=== PATIENT | female | born 1950 | race Two or more races ===

== ENCOUNTER → 2016-07-17 | Outpatient (CLI) | payer OTHER ==
[2016-07-17 12:31] LABS: Basophils # (auto) 0 uL; Basophils % (auto) 0.5 % (0.0-2.0); Eosinophils # (auto) 0 uL; Eosinophils % (auto) 1.3 % (0.0-7.0); Hematocrit 35.5 % (36.0-46.0); Hemoglobin 11.4 g/dL (12.2-16.2); Lymphocytes # (auto) 1.3 uL; Lymphocytes % (auto) 35.6 % (10.0-50.0); Mean Corpuscular Hemoglobin 28.4 pg (28.0-32.0); Mean Corpuscular Hgb Conc. 32.2 g/dL (32.0-36.0); Mean Platelet Volume 10.1 fL (7.4-10.4); Monocytes # (auto) 0.2 uL; Monocytes % (auto) 6.2 % (0.0-12.0); Neutrophils % (auto) 56.4 % (37.0-80.0); Platelet Count (auto) 207 10^3/uL (140-450); Red Cell Distribution Width 16.5 % (11.6-16.0); White Blood Cell 3.5 10^3/uL (4.4-10.8)
[2016-07-17 14:34] LABS: Albumin 3.1 g/dL (3.4-5.0); BUN/Creatinine Ratio 15.1; Bilirubin, Total 0.3 mg/dL (0.2-1.0); Potassium 3.7 mmol/L (3.5-5.1); Total Protein 10.3 g/dL (6.4-8.2)
== END | disposition home or self-care (01) ==
LOC: LAB 10:59
PROVIDERS: ATTEND Internal Medicine
DX: C90.00 Multiple myeloma not having achieved remission (principal)
CPT/HCPCS: 36415; 80053; 82232; 82784; 83615; 83883; 85025; 85652; 86334

== ENCOUNTER → 2016-07-21 | Outpatient (CLI) | payer OTHER | END | disposition home or self-care (01) | LOC: LAB 13:47 | PROVIDERS: ATTEND Internal Medicine | DX: C90.00 Multiple myeloma not having achieved remission (principal) | CPT/HCPCS: 84156 ==

== ENCOUNTER → 2016-08-18 | Outpatient (CLI) | payer OTHER ==
[2016-08-18 09:28] LABS: Basophils # (auto) 0 uL; Basophils % (auto) 0.5 % (0.0-2.0); Eosinophils # (auto) 0.1 uL; Eosinophils % (auto) 1.6 % (0.0-7.0); Hematocrit 32.4 % (36.0-46.0); Hemoglobin 10.7 g/dL (12.2-16.2); Lymphocytes # (auto) 1.3 uL; Lymphocytes % (auto) 39.8 % (10.0-50.0); Mean Corpuscular Volume 88.1 fL (80.0-100.0); Mean Platelet Volume 9.7 fL (7.4-10.4); Monocytes # (auto) 0.4 uL; Monocytes % (auto) 11.3 % (0.0-12.0); Neutrophils # (auto) 1.6 uL; Neutrophils % (auto) 46.8 % (37.0-80.0); Platelet Count (auto) 165 10^3/uL (140-450); Red Cell Distribution Width 18.6 % (11.6-16.0); SUSPECT VIEW TRANSMISSION; White Blood Cell 3.4 10^3/uL (4.4-10.8)
[2016-08-18 09:51] LABS: BUN/Creatinine Ratio 21.8; Calcium 9.4 mg/dL (8.5-10.1); Potassium 3.7 mmol/L (3.5-5.1)
== END | disposition home or self-care (01) ==
LOC: LAB 08:37
PROVIDERS: ATTEND Internal Medicine
DX: C90.01 Multiple myeloma in remission (principal)
CPT/HCPCS: 36415; 80048; 82232; 82784; 83615; 83883; 85025; 86334; 86335

== ENCOUNTER → 2016-09-29 | Outpatient (CLI) | payer OTHER ==
[2016-09-29 09:21] LABS: Basophils # (auto) 0 uL; Basophils % (auto) 0.6 % (0.0-2.0); DEFINITIVE VIEW TRANSMISSION; Eosinophils # (auto) 0 uL; Eosinophils % (auto) 0.4 % (0.0-7.0); Hemoglobin 7.4 g/dL (12.2-16.2); Lymphocytes # (auto) 1.3 uL; Lymphocytes % (auto) 39.6 % (10.0-50.0); Mean Corpuscular Hemoglobin 29.5 pg (28.0-32.0); Mean Corpuscular Hgb Conc. 33.8 g/dL (32.0-36.0); Mean Corpuscular Volume 87.4 fL (80.0-100.0); Mean Platelet Volume 8.5 fL (7.4-10.4); Monocytes # (auto) 0.3 uL; Monocytes % (auto) 7.9 % (0.0-12.0); Neutrophils # (auto) 1.7 uL; Neutrophils % (auto) 51.5 % (37.0-80.0); Platelet Count (auto) 103 10^3/uL (140-450); White Blood Cell 3.3 10^3/uL (4.4-10.8)
[2016-09-29 09:26] LABS: Red Cell Distribution Width 20.5 % (11.6-16.0)
[2016-09-29 09:40] LABS: Anisocytosis Slight; Platelet Estimate Decreased; Polychromasia Slight; Schistocytes FEW
[2016-09-29 10:00] LABS: Potassium 3.6 mmol/L (3.5-5.1)
[2016-09-29 10:23] LABS: Albumin 1.8 g/dL (3.4-5.0); Bilirubin, Total 0.3 mg/dL (0.2-1.0); Calcium 8.5 mg/dL (8.5-10.1); Total Protein 14.8 g/dL (6.4-8.2)
== END | disposition home or self-care (01) ==
LOC: LAB 09:03
PROVIDERS: ATTEND Internal Medicine
DX: Z51.11 Encounter for antineoplastic chemotherapy (principal)
CPT/HCPCS: 36415; 80053; 83615; 85025

== ENCOUNTER 2016-10-08 03:30 | Inpatient (IN) | payer OTHER ==
[2016-10-08] VITALS (12 sets, daily range): BP systolic 112–137; BP diastolic 63–86
[~2016-10-08] VITALS: Ht 177.8 cm; Wt 97.0 kg
[2016-10-08] MEDS ORDERED: SODIUM CHLORIDE 0.9% 1,000 ML IV ONE ×2 (07:24→10:07)
[2016-10-08] MEDS ORDERED: KETOROLAC TROMETH 30 MG/ML 1ML VIAL IV ONE (07:30)
[2016-10-08] MEDS ORDERED: METOCLOPRAMIDE HCL 5MG/ml INJ 2ml VIAL IV ONE (07:30)
[2016-10-08] MEDS ORDERED: cefTRIAXone 1GM/50ML D5W 50 ML IV ONE (07:30)
[2016-10-08 07:57] LABS: Basophils # (auto) 0 uL; Basophils % (auto) 0.5 % (0.0-2.0); DEFINITIVE VIEW TRANSMISSION; Eosinophils # (auto) 0 uL; Eosinophils % (auto) 0.2 % (0.0-7.0); Hematocrit 18.1 % (36.0-46.0); Lymphocytes # (auto) 1.6 uL; Lymphocytes % (auto) 46.4 % (10.0-50.0); Mean Corpuscular Hgb Conc. 34.2 g/dL (32.0-36.0); Mean Corpuscular Volume 87.6 fL (80.0-100.0); Mean Platelet Volume 8.9 fL (7.4-10.4); Monocytes # (auto) 0.3 uL; Monocytes % (auto) 9.4 % (0.0-12.0); Neutrophils # (auto) 1.5 uL; Neutrophils % (auto) 43.5 % (37.0-80.0); Platelet Count (auto) 105 10^3/uL (140-450); White Blood Cell 3.5 10^3/uL (4.4-10.8)
[2016-10-08 08:03] LABS: Red Cell Distribution Width 20.3 % (11.6-16.0)
[2016-10-08 08:03] LABS: Urine Bilirubin Negative (Negative); Urine Blood TRACE /uL (Negative); Urine Color Yellow (Yellow); Urine Glucose Normal (Normal); Urine Ketone Negative (Negative); Urine Mucus FEW (None Seen); Urine RBC 5 /hpf (0 - 4); Urine Squamous Epithelial Cell FEW /hpf (<5); Urine pH 5.5 (5.0-8.0)
[2016-10-08 08:04] LABS: Urine Nitrite POSITIVE (Negative)
[2016-10-08 08:06] LABS: Hemoglobin 6.2 g/dL (12.2-16.2)
[2016-10-08 08:12] LABS: BUN/Creatinine Ratio 23.6; Calcium 7.8 mg/dL (8.5-10.1); Magnesium 2.1 mg/dL (1.6-2.6); Potassium 3.3 mmol/L (3.5-5.1)
[2016-10-08 08:23] LABS: Bilirubin, Total 0.3 mg/dL (0.2-1.0); Total Protein 13.6 g/dL (6.4-8.2)
[2016-10-08 10:04] LABS: Anisocytosis Moderate; Platelet Estimate Adequate
[2016-10-08] MEDS ORDERED: POTASSIUM CHL 10% (20 MEQ/15ML) ORAL SOLN PO ONE (10:15)
[2016-10-08] MEDS ORDERED: PIPERACILLIN-TAZOB 3.375GM 100 ML IV ONE (10:30)
[2016-10-08] MEDS ORDERED: VANCOMYCIN PER PHARMACY 0 MG IV SCH (10:30)
[2016-10-08] MEDS ORDERED: VANCOMYCIN 1GM/250ML D5W 250 ML IV ONE (10:30)
[2016-10-08] MEDS ORDERED: PROMETHAZINE HCL 25 MG/ML 1ML IV PRN (10:45)
[2016-10-08] MEDS ORDERED: LACTULOSE 20Gm/30ML SOLN PO PRN (10:45)
[2016-10-08] MEDS ORDERED: NITROGLYCERIN 0.4 MG SL TAB SL PRN (10:45)
[2016-10-08] MEDS ORDERED: ACETAMINOPHEN 500 MG TAB PO PRN (10:45)
[2016-10-08] MEDS ORDERED: MORPHINE SULF INJ 2 MG/ML SYRINGE 1ML IV PRN (10:45)
[2016-10-08] MEDS ORDERED: LORazepam 0.5 MG TAB PO PRN (10:45)
[2016-10-08] MEDS ORDERED: TEMAZEPAM 15 MG CAP PO PRN (10:45)
[2016-10-08] MEDS ORDERED: Isosource 1.5 Cal 1 Liter GT SCH (11:30)
[2016-10-08] MEDS ORDERED: PIPERACILLIN-TAZOB 3.375GM 100 ML IV SCH (12:00)
[2016-10-08] MEDS: SODIUM CHLORIDE 0.9% 1,000 ML IV SCH ×2 (12:20→22:24)
[2016-10-08] MEDS: VANCOMYCIN 1GM/250ML D5W 250 ML IV SCH ×2 (12:21→22:59)
[2016-10-08] MEDS ORDERED: ONDANSETRON HCL 4 MG/2 ML VIAL ONE (12:40)
[2016-10-08] MEDS: MORPHINE SULF INJ 2 MG/ML SYRINGE 1ML IV PRN (12:51)
[2016-10-08] MEDS ORDERED: ONDANSETRON HCL 4 MG/2 ML VIAL IV PRN (13:00)
[2016-10-08] MEDS: HYDROcodone-ACET 5/325MG TAB PO PRN (16:49)
[2016-10-08] MEDS ORDERED: POM PO (19:17)
[2016-10-08] MEDS ORDERED: LISI-646 PO (19:17)
[2016-10-09] VITALS (12 sets, daily range): BP systolic 108–145; BP diastolic 63–90
[2016-10-09] MEDS: PIPERACILLIN-TAZOB 3.375GM 100 ML IV SCH ×4 (00:34→18:10)
[2016-10-09] MEDS: HYDROcodone-ACET 5/325MG TAB PO PRN ×3 (02:07→17:27)
[2016-10-09 06:14] LABS: Partial Thromboplastin Time 45.3 sec (22.64-33.71)
[2016-10-09 06:15] LABS: DEFINITIVE VIEW TRANSMISSION; Hematocrit 17.8 % (36.0-46.0); INR 1.48 (0.9-1.15); Mean Corpuscular Hemoglobin 30.2 pg (28.0-32.0); Mean Corpuscular Hgb Conc. 33.8 g/dL (32.0-36.0); Mean Corpuscular Volume 89.1 fL (80.0-100.0); Mean Platelet Volume 8.5 fL (7.4-10.4); Platelet Count (auto) 74 10^3/uL (140-450); Red Cell Distribution Width 18.2 % (11.6-16.0); White Blood Cell 2.8 10^3/uL (4.4-10.8)
[2016-10-09 06:22] LABS: Metamyelocytes % 0; Myelocytes % 0; Promyelocytes % 0; Reactive Lymphocytes 0
[2016-10-09] MEDS: SODIUM CHLORIDE 0.9% 1,000 ML IV SCH ×2 (06:31→16:41)
[2016-10-09 07:28] LABS: Anisocytosis Moderate; Platelet Estimate Decreased
[2016-10-09 08:21] LABS: BUN/Creatinine Ratio 16.5; Potassium 3.5 mmol/L (3.5-5.1)
[2016-10-09 08:22] LABS: Albumin 1.6 g/dL (3.4-5.0); Bilirubin, Total 0.4 mg/dL (0.2-1.0); Total Protein 12.6 g/dL (6.4-8.2)
[2016-10-09 08:43] LABS: Hematocrit 19.2 % (36.0-46.0)
[2016-10-09 08:51] LABS: Hemoglobin 6.5 g/dL (12.2-16.2)
[2016-10-09] MEDS: VANCOMYCIN 1GM/250ML D5W 250 ML IV SCH ×2 (10:39→23:02)
[2016-10-09 22:16] LABS: Hematocrit 23.9 % (36.0-46.0); Hemoglobin 8.1 g/dL (12.2-16.2)
[2016-10-10] MEDS: HYDROcodone-ACET 5/325MG TAB PO PRN ×3 (00:07→22:00)
[2016-10-10] MEDS: PIPERACILLIN-TAZOB 3.375GM 100 ML IV SCH ×3 (00:07→12:19)
[2016-10-10] MEDS: SODIUM CHLORIDE 0.9% 1,000 ML IV SCH ×3 (02:21→23:29)
[2016-10-10 04:53] VITALS: BP 134/77
[2016-10-10 05:59] LABS: Basophils # (auto) 0 uL; Basophils % (auto) 0.4 % (0.0-2.0); DEFINITIVE VIEW TRANSMISSION; Eosinophils # (auto) 0 uL; Eosinophils % (auto) 0.4 % (0.0-7.0); Hematocrit 23.9 % (36.0-46.0); Hemoglobin 8.1 g/dL (12.2-16.2); Lymphocytes # (auto) 1.6 uL; Lymphocytes % (auto) 50.4 % (10.0-50.0); Mean Corpuscular Hemoglobin 29.6 pg (28.0-32.0); Mean Corpuscular Hgb Conc. 33.9 g/dL (32.0-36.0); Mean Corpuscular Volume 87.3 fL (80.0-100.0); Mean Platelet Volume 8.6 fL (7.4-10.4); Monocytes # (auto) 0.3 uL; Monocytes % (auto) 9.9 % (0.0-12.0); Neutrophils # (auto) 1.2 uL; Neutrophils % (auto) 38.9 % (37.0-80.0); Platelet Count (auto) 84 10^3/uL (140-450); Red Cell Distribution Width 18.5 % (11.6-16.0); Reticulocyte Count 1.62 % (0.5-1.5); White Blood Cell 3.2 10^3/uL (4.4-10.8)
[2016-10-10 06:35] LABS: Albumin 1.5 g/dL (3.4-5.0); BUN/Creatinine Ratio 10.2; Bilirubin, Total 0.4 mg/dL (0.2-1.0); Calcium 8.1 mg/dL (8.5-10.1); Potassium 3.5 mmol/L (3.5-5.1); Total Protein 12.4 g/dL (6.4-8.2)
[2016-10-10 09:00] VITALS: BP 142/83
[2016-10-10] MEDS: VANCOMYCIN 1GM/250ML D5W 250 ML IV SCH (10:49)
[2016-10-10] MEDS: MORPHINE SULF INJ 2 MG/ML SYRINGE 1ML IV PRN (11:17)
[2016-10-10 13:00] VITALS: BP 145/81
[2016-10-10] MEDS ORDERED: GADOPENTETATE DIMEGLUMINE (10MMOL/20 ML) VIAL IV ONE (13:18)
[2016-10-10] MEDS: predniSONE 20 MG TAB PO SCH ×2 (14:20→22:00)
[2016-10-10 16:40] VITALS: BP 151/88
[2016-10-10] MEDS: CLINDAMYCIN HCL 150 MG CAP PO SCH (17:58)
[2016-10-10 22:00] VITALS: BP 142/86
[2016-10-10] MEDS: SULFAMETHOX W/TRIMETH(800/160MG) DS TAB PO SCH (22:00)
[2016-10-11] MEDS: CLINDAMYCIN HCL 150 MG CAP PO SCH ×3 (00:41→12:34)
[2016-10-11 05:00] VITALS: BP 137/70
[2016-10-11] MEDS: SODIUM CHLORIDE 0.9% 1,000 ML IV SCH (08:31)
[2016-10-11 08:51] VITALS: BP 128/58
[2016-10-11] MEDS: SULFAMETHOX W/TRIMETH(800/160MG) DS TAB PO SCH (10:28)
[2016-10-11] MEDS: predniSONE 20 MG TAB PO SCH (10:28)
[2016-10-11 12:46] VITALS: BP 123/63
[2016-10-11 17:00] VITALS: BP 133/86
[2016-10-11 17:15] VITALS: BP 128/58
[2016-10-12 14:06] LABS: Haptoglobin 95 mg/dL (34-200)
== END 2016-10-11 18:15 | disposition home or self-care (01) | DRG 157 ==
LOC: ER 03:31 → TELE 03:32 → TELE-E-ADS 17:53 → TELE-WESTW 17:55
PROVIDERS: ADMIT Internal Medicine; ATTEND Internal Medicine Pulmonary Disease
PROC: 30233N1 Transfusion of Nonautologous Red Blood Cells into Peripheral Vein, Percutaneous Approach (ICD-10-PCS; principal; 2016-10-08)
DX: K05.30 Chronic periodontitis, unspecified (principal); E43 Unspecified severe protein-calorie malnutrition; L03.211 Cellulitis of face; D61.818 Other pancytopenia; N39.0 Urinary tract infection, site not specified; D68.9 Coagulation defect, unspecified; C90.00 Multiple myeloma not having achieved remission; E83.52 Hypercalcemia; K04.7 Periapical abscess without sinus; I10 Essential (primary) hypertension; E87.6 Hypokalemia; R91.8 Other nonspecific abnormal finding of lung field; N28.9 Disorder of kidney and ureter, unspecified; H70.93 Unspecified mastoiditis, bilateral; Z83.3 Family history of diabetes mellitus; Z92.21 Personal history of antineoplastic chemotherapy; Z98.51 Tubal ligation status; Z80.9 Family history of malignant neoplasm, unspecified; Z68.30 Body mass index [BMI] 30.0-30.9, adult; Z98.84 Bariatric surgery status
CPT/HCPCS: 36415; 36430; 70486; 70553; 71020; 80053; 80202; 81001; 82962; 83010; 83605; 83615; 83735; 85007; 85014; 85018; 85025; 85027; 85045; 85610; 85730; 86038; 86850; 86880; 86900; 86901; 86920; 87040; 87086; 87088; 87186; 93005; 93971; 94761; 96365; 96375; J0696; J1885; J2405; J2543

== ENCOUNTER → 2016-10-13 | Outpatient (CLI) | payer OTHER ==
[~2016-10-13] MED LIST: LISI-646 PO; POM PO
[2016-10-13 09:30] LABS: Basophils # (auto) 0 uL; Basophils % (auto) 0.1 % (0.0-2.0); Eosinophils # (auto) 0 uL; Eosinophils % (auto) 0.1 % (0.0-7.0); Hematocrit 27.9 % (36.0-46.0); Hemoglobin 9.7 g/dL (12.2-16.2); Lymphocytes # (auto) 1.1 uL; Lymphocytes % (auto) 27.5 % (10.0-50.0); Mean Corpuscular Hemoglobin 30.5 pg (28.0-32.0); Mean Corpuscular Hgb Conc. 34.7 g/dL (32.0-36.0); Mean Corpuscular Volume 87.9 fL (80.0-100.0); Mean Platelet Volume 8.7 fL (7.4-10.4); Monocytes # (auto) 0.5 uL; Monocytes % (auto) 12.6 % (0.0-12.0); Neutrophils # (auto) 2.5 uL; Neutrophils % (auto) 59.7 % (37.0-80.0); Red Cell Distribution Width 18.2 % (11.6-16.0); SUSPECT VIEW TRANSMISSION; White Blood Cell 4.2 10^3/uL (4.4-10.8)
[2016-10-13 09:32] LABS: Platelet Count (auto) 115 10^3/uL (140-450)
[2016-10-13 12:51] LABS: Albumin 1.6 g/dL (3.4-5.0); Bilirubin, Total 0.2 mg/dL (0.2-1.0); Calcium 8.7 mg/dL (8.5-10.1); Potassium 3.8 mmol/L (3.5-5.1); Total Protein 13.2 g/dL (6.4-8.2)
== END | disposition home or self-care (01) ==
LOC: LAB 09:04
PROVIDERS: ATTEND Internal Medicine
DX: C90.01 Multiple myeloma in remission (principal)
CPT/HCPCS: 36415; 80053; 83615; 85025

== ENCOUNTER → 2016-10-29 | Outpatient (CLI) | payer OTHER ==
[2016-10-29 10:06] LABS: DEFINITIVE VIEW TRANSMISSION; Hematocrit 24.4 % (36.0-46.0); Hemoglobin 8.4 g/dL (12.2-16.2); Mean Corpuscular Hemoglobin 30.9 pg (28.0-32.0); Mean Corpuscular Hgb Conc. 34.3 g/dL (32.0-36.0); Mean Corpuscular Volume 90.3 fL (80.0-100.0); Platelet Count (auto) 128 10^3/uL (140-450); White Blood Cell 3.2 10^3/uL (4.4-10.8)
[2016-10-29 10:25] LABS: Red Cell Distribution Width 21.3 % (11.6-16.0)
[2016-10-29 10:26] LABS: Metamyelocytes % 0; Myelocytes % 0; Promyelocytes % 0; Reactive Lymphocytes 0
[2016-10-29 10:35] LABS: Albumin 1.7 g/dL (3.4-5.0); BUN/Creatinine Ratio 12.4; Bilirubin, Total 0.3 mg/dL (0.2-1.0); Calcium 8.5 mg/dL (8.5-10.1); Potassium 3.6 mmol/L (3.5-5.1); Total Protein 15.4 g/dL (6.4-8.2)
[2016-10-29 11:54] LABS: Anisocytosis Moderate; Platelet Estimate Decreased
== END | disposition home or self-care (01) ==
LOC: LAB 09:19
PROVIDERS: ATTEND Internal Medicine
DX: C90.00 Multiple myeloma not having achieved remission (principal)
CPT/HCPCS: 36415; 80053; 83615; 85007; 85027

== ENCOUNTER → 2016-11-06 | Outpatient (CLI) | payer OTHER ==
[2016-11-06 14:03] LABS: DEFINITIVE VIEW TRANSMISSION; Hematocrit 18.6 % (36.0-46.0); Mean Corpuscular Hemoglobin 31.9 pg (28.0-32.0); Mean Corpuscular Hgb Conc. 34.9 g/dL (32.0-36.0); Mean Corpuscular Volume 91.3 fL (80.0-100.0); Mean Platelet Volume 8.1 fL (7.4-10.4); Platelet Count (auto) 87 10^3/uL (140-450); White Blood Cell 2.7 10^3/uL (4.4-10.8)
[2016-11-06 14:13] LABS: Red Cell Distribution Width 23.1 % (11.6-16.0)
[2016-11-06 14:16] LABS: Hemoglobin 6.5 g/dL (12.2-16.2)
[2016-11-06 14:17] LABS: Metamyelocytes % 0; Myelocytes % 0; Promyelocytes % 0; Reactive Lymphocytes 0
[2016-11-06 14:38] LABS: Albumin 1.8 g/dL (3.4-5.0); Bilirubin, Total 0.7 mg/dL (0.2-1.0); Calcium 7.5 mg/dL (8.5-10.1); Potassium 3.2 mmol/L (3.5-5.1); Total Protein 14.8 g/dL (6.4-8.2)
[2016-11-06 15:06] LABS: Platelet Estimate Decreased
[2016-11-06 15:07] LABS: Anisocytosis Moderate
== END | disposition home or self-care (01) ==
LOC: LAB 13:33
PROVIDERS: ATTEND Internal Medicine
DX: C90.00 Multiple myeloma not having achieved remission (principal)
CPT/HCPCS: 36415; 80053; 83615; 85007; 85027

== ENCOUNTER → 2016-11-10 | Outpatient (CLI) | payer OTHER ==
[2016-11-10 11:42] LABS: Albumin 1.8 g/dL (3.4-5.0); BUN/Creatinine Ratio 11.2; Bilirubin, Total 0.9 mg/dL (0.2-1.0); Calcium 8.3 mg/dL (8.5-10.1); Potassium 3.2 mmol/L (3.5-5.1); Total Protein 14.8 g/dL (6.4-8.2)
[2016-11-10 12:21] LABS: Basophils # (auto) 0 uL; Basophils % (auto) 1.6 % (0.0-2.0); DEFINITIVE VIEW TRANSMISSION; Eosinophils # (auto) 0 uL; Eosinophils % (auto) 0.8 % (0.0-7.0); Hematocrit 17.8 % (36.0-46.0); Lymphocytes # (auto) 1.5 uL; Lymphocytes % (auto) 53.6 % (10.0-50.0); Mean Corpuscular Hemoglobin 32.3 pg (28.0-32.0); Mean Corpuscular Hgb Conc. 34.7 g/dL (32.0-36.0); Mean Corpuscular Volume 93.2 fL (80.0-100.0); Monocytes # (auto) 0.3 uL; Monocytes % (auto) 9.4 % (0.0-12.0); Neutrophils % (auto) 34.6 % (37.0-80.0); Platelet Count (auto) 98 10^3/uL (140-450); White Blood Cell 2.9 10^3/uL (4.4-10.8)
[2016-11-10 16:59] LABS: Red Cell Distribution Width 24.5 % (11.6-16.0)
[2016-11-10 18:55] LABS: Anisocytosis Slight; Hemoglobin 6.2 g/dL (12.2-16.2); Platelet Estimate Decreased
== END | disposition home or self-care (01) ==
LOC: LAB 08:46
PROVIDERS: ATTEND Internal Medicine
DX: C90.00 Multiple myeloma not having achieved remission (principal)
CPT/HCPCS: 36415; 80053; 83615; 85025; 85652

== ENCOUNTER 2016-11-11 14:59 | Inpatient (IN) | payer OTHER ==
[~2016-11-11] VITALS: Ht 177.8 cm; Wt 83.4 kg
[2016-11-11 16:40] LABS: Albumin 1.7 g/dL (3.4-5.0); Calcium 7.9 mg/dL (8.5-10.1)
[2016-11-11 16:41] LABS: BUN/Creatinine Ratio 13.1
[2016-11-11 16:42] LABS: Basophils # (auto) 0 uL; Basophils % (auto) 0.6 % (0.0-2.0); DEFINITIVE Y; Eosinophils # (auto) 0 uL; Eosinophils % (auto) 0.7 % (0.0-7.0); Hematocrit 16.7 % (36.0-46.0); Lymphocytes # (auto) 1.6 uL; Lymphocytes % (auto) 53.4 % (10.0-50.0); Mean Corpuscular Hgb Conc. 33.8 g/dL (32.0-36.0); Mean Corpuscular Volume 94.7 fL (80.0-100.0); Mean Platelet Volume 8.7 fL (7.4-10.4); Monocytes # (auto) 0.3 uL; Monocytes % (auto) 9.8 % (0.0-12.0); Neutrophils # (auto) 1.1 uL; Neutrophils % (auto) 35.5 % (37.0-80.0); Platelet Count (auto) 96 10^3/uL (140-450)
[2016-11-11 16:53] LABS: Bilirubin, Total 0.7 mg/dL (0.2-1.0); Total Protein 15.2 g/dL (6.4-8.2)
[2016-11-11 17:05] LABS: Hemoglobin 5.6 g/dL (12.2-16.2); Red Cell Distribution Width 24.4 % (11.6-16.0)
[2016-11-11 17:16] LABS: Partial Thromboplastin Time 30.9 sec (22.64-33.71)
[2016-11-11 17:26] LABS: INR 1.35 (0.9-1.15); Prothrombin Time 14.8 sec (9.37-12.3)
[2016-11-11 19:04] LABS: Anisocytosis Moderate; Platelet Estimate Decreased
[2016-11-11 19:05] LABS: Poikilocytosis Slight
[2016-11-11 19:06] LABS: Tear Drop Cells FEW
[2016-11-11] MEDS ORDERED: HYDROcodone-ACET 10/325MG TAB PO ONE (21:00)
[2016-11-11 23:22] VITALS: BP 142/77
[2016-11-11] MEDS ORDERED: MORPHINE SULF INJ 2 MG/ML SYRINGE 1ML IV PRN (23:30)
[2016-11-11] MEDS ORDERED: LACTULOSE 20Gm/30ML SOLN PO PRN (23:30)
[2016-11-11] MEDS ORDERED: PANTOPRAZOLE SODIUM 40 MG/10 ML VIAL IV ONE (23:30)
[2016-11-11] MEDS ORDERED: NITROGLYCERIN 0.4 MG SL TAB SL PRN (23:30)
[2016-11-11 23:48] VITALS: BP 144/78
[2016-11-11] MEDS: POTASSIUM CHL 20MEQ/100ML 100 ML IV SCH (23:48)
[2016-11-12] VITALS (23 sets, daily range): BP systolic 137–164; BP diastolic 72–95
[2016-11-12] MEDS: POTASSIUM CHL 20MEQ/100ML 100 ML IV SCH (02:10)
[2016-11-12 04:27] LABS: DEFINITIVE Y; Hematocrit 17.4 % (36.0-46.0); Mean Corpuscular Hemoglobin 33.5 pg (28.0-32.0); Mean Corpuscular Hgb Conc. 36.1 g/dL (32.0-36.0); Mean Corpuscular Volume 92.9 fL (80.0-100.0); Mean Platelet Volume 8.8 fL (7.4-10.4); Platelet Count (auto) 77 10^3/uL (140-450); White Blood Cell 2.5 10^3/uL (4.4-10.8)
[2016-11-12 04:42] LABS: Albumin 1.6 g/dL (3.4-5.0); Calcium 7.7 mg/dL (8.5-10.1); Potassium 3.7 mmol/L (3.5-5.1)
[2016-11-12 04:43] LABS: BUN/Creatinine Ratio 14.3
[2016-11-12 04:53] LABS: Red Cell Distribution Width 22.1 % (11.6-16.0)
[2016-11-12 04:55] LABS: Hemoglobin 6.3 g/dL (12.2-16.2)
[2016-11-12 04:56] LABS: Bilirubin, Total 0.7 mg/dL (0.2-1.0); Metamyelocytes % 0; Myelocytes % 0; Promyelocytes % 0; Reactive Lymphocytes 0
[2016-11-12 05:43] LABS: Platelet Estimate Decreased
[2016-11-12 05:44] LABS: Anisocytosis Moderate
[2016-11-12 05:47] LABS: Polychromasia Slight
[2016-11-12] MEDS ORDERED: PANTOPRAZOLE SODIUM 40 MG/10 ML VIAL IV SCH (10:00)
[2016-11-12] MEDS: LISINOPRIL 20 MG TAB PO SCH (10:00)
[2016-11-12] MEDS ORDERED: FUROSEMIDE 20 MG/2 ML VIAL IV ONE (15:00)
[2016-11-12] MEDS ORDERED: POTASSIUM CHL 20 Meq TABLET PO ONE (15:00)
[2016-11-12] MEDS ORDERED: HYDROcodone-ACET 5/325MG TAB PO PRN (16:00)
[2016-11-13 00:40] VITALS: BP 144/85
[2016-11-13 05:00] VITALS: BP 145/83
[2016-11-13 06:55] LABS: CONDITION Y; DEFINITIVE Y; Hematocrit 22.6 % (36.0-46.0); Hemoglobin 7.8 g/dL (12.2-16.2); Mean Corpuscular Hemoglobin 31.9 pg (28.0-32.0); Mean Corpuscular Hgb Conc. 34.6 g/dL (32.0-36.0); Mean Corpuscular Volume 92.3 fL (80.0-100.0); Mean Platelet Volume 8.7 fL (7.4-10.4); Platelet Count (auto) 75 10^3/uL (140-450); Red Cell Distribution Width 19.7 % (11.6-16.0); White Blood Cell 2.9 10^3/uL (4.4-10.8)
[2016-11-13 07:21] LABS: Metamyelocytes % 0; Myelocytes % 0; Promyelocytes % 0; Reactive Lymphocytes 0
[2016-11-13 07:41] LABS: BUN/Creatinine Ratio 15.9; Calcium 7.9 mg/dL (8.5-10.1)
[2016-11-13 07:42] LABS: Potassium 3.3 mmol/L (3.5-5.1)
[2016-11-13] MEDS ORDERED: POTASSIUM CHL 20 Meq TABLET PO ONE (08:30)
[2016-11-13 09:00] VITALS: BP 134/73
[2016-11-13] MEDS ORDERED: PANTOPRAZOLE 40 MG TAB PO SCH (10:00)
[2016-11-13 10:07] LABS: Anisocytosis Slight; Platelet Estimate Decreased
[2016-11-13] MEDS: LISINOPRIL 20 MG TAB PO SCH (10:14)
[2016-11-13 11:04] VITALS: BP 134/73
[2016-11-13 13:00] VITALS: BP 161/97
== END 2016-11-13 12:41 | disposition home or self-care (01) | DRG 840 ==
LOC: ER 15:17 → TELE 15:19 → TELE-WESTW 11-12 09:11
PROVIDERS: ADMIT Family Medicine; ATTEND Internal Medicine
PROC: 30233N1 Transfusion of Nonautologous Red Blood Cells into Peripheral Vein, Percutaneous Approach (ICD-10-PCS; principal; 2016-11-11)
DX: C90.00 Multiple myeloma not having achieved remission (principal); E43 Unspecified severe protein-calorie malnutrition; D61.818 Other pancytopenia; D64.9 Anemia, unspecified; E11.9 Type 2 diabetes mellitus without complications; Z85.9 Personal history of malignant neoplasm, unspecified; E87.6 Hypokalemia; Z68.24 Body mass index [BMI] 24.0-24.9, adult; I10 Essential (primary) hypertension; Z71.89 Other specified counseling; Z92.21 Personal history of antineoplastic chemotherapy
CPT/HCPCS: 36415; 36430; 71010; 80048; 80053; 85007; 85025; 85027; 85610; 85730; 86850; 86900; 86901; 86920; 93005; 94761; 96365; C9113; J3480

== ENCOUNTER 2016-11-19 15:14 | Inpatient (IN) | payer OTHER ==
[~2016-11-19] VITALS: Ht 177.8 cm; Wt 83.1 kg
[2016-11-19 16:02] LABS: CONDITION Y; DEFINITIVE SEE PRINTOUT; Hematocrit 23.9 % (36.0-46.0); Hemoglobin 8.3 g/dL (12.2-16.2); Mean Corpuscular Hemoglobin 32.4 pg (28.0-32.0); Mean Corpuscular Hgb Conc. 34.6 g/dL (32.0-36.0); Mean Corpuscular Volume 93.6 fL (80.0-100.0); Mean Platelet Volume 8.8 fL (7.4-10.4); Platelet Count (auto) 83 10^3/uL (140-450); SUSPECT SEE PRINTOUT; White Blood Cell 2.3 10^3/uL (4.4-10.8)
[2016-11-19 16:08] LABS: Albumin 1.6 g/dL (3.4-5.0); Anion Gap 10 (5-15); Aspartate Aminotransferase 46 U/L (15-37); BUN/Creatinine Ratio 7.7; Blood Urea Nitrogen 8 mg/dL (7-18); Carbon Dioxide 17 mmol/L (21-32); Chloride 112 mmol/L (98-107); GFR African American 68 mL/min; GFR Non-African American 56 mL/min; Glucose 127 mg/dL (74-106); Sodium 139 mmol/L (136-145)
[2016-11-19 16:19] LABS: Alkaline Phosphatase 40 U/L (45-117); Bilirubin, Total 0.5 mg/dL (0.2-1.0); Total Protein 14.2 g/dL (6.4-8.2)
[2016-11-19 16:24] LABS: Potassium 2.8 mmol/L (3.5-5.1)
[2016-11-19 16:56] LABS: Red Cell Distribution Width 20.6 % (11.6-16.0)
[2016-11-19 16:57] LABS: Metamyelocytes % 0; Myelocytes % 0; Promyelocytes % 0; Reactive Lymphocytes 0
[2016-11-19] MEDS ORDERED: SODIUM CHLORIDE 0.9% 1,000 ML IV ONE (17:21)
[2016-11-19] MEDS ORDERED: ONDANSETRON HCL 4 MG/2 ML VIAL IV ONE (17:30)
[2016-11-19 18:16] LABS: INR 1.41 (0.9-1.15); Partial Thromboplastin Time 34.2 sec (22.64-33.71)
[2016-11-19 18:24] LABS: Prothrombin Time 15.4 sec (9.37-12.3)
[2016-11-19 18:25] LABS: Anisocytosis Moderate; Platelet Estimate Decreased
[2016-11-19] MEDS ORDERED: POTASSIUM CHL 20MEQ/100ML 100 ML IV ONE (19:45)
[2016-11-19] MEDS ORDERED: POTASSIUM CHL 10% (20 MEQ/15ML) ORAL SOLN PO ONE (19:45)
[2016-11-19] MEDS ORDERED: POTASSIUM CHLORIDE 20 MEQ, LIDOCAINE 1% (LOCAL ANESTH.) 2 ML in SODIUM CHL 0.9% 100 ML IV ONE (20:15)
[2016-11-19] MEDS ORDERED: HYDROcodone-ACET 7.5/325MG TAB PO ONE (20:15)
[2016-11-19] MEDS ORDERED: TEMAZEPAM 15 MG CAP PO PRN (21:30)
[2016-11-19] MEDS ORDERED: ONDANSETRON HCL 4 MG/2 ML VIAL IV PRN (21:30)
[2016-11-19] MEDS ORDERED: NITROGLYCERIN 0.4 MG SL TAB SL PRN (21:30)
[2016-11-19] MEDS ORDERED: ACETAMINOPHEN 325 MG TAB PO PRN (21:30)
[2016-11-19] MEDS ORDERED: PANTOPRAZOLE SODIUM 40 MG/10 ML VIAL IV ONE (21:30)
[2016-11-19] MEDS ORDERED: MORPHINE SULF INJ 2 MG/ML SYRINGE 1ML IV PRN ×2 (21:30)
[2016-11-19] MEDS ORDERED: ENOXAPARIN SOD 30 MG/0.3 ML SYRINGE SC SCH (21:31)
[2016-11-19] MEDS ORDERED: DEXTROSE (50%) 50ML SYRG IV PRN (21:45)
[2016-11-19 22:00] VITALS: BP 139/92
[2016-11-19] MEDS: SODIUM CHLORIDE 0.9% 1,000 ML IV SCH (22:18)
[2016-11-19 22:55] VITALS: BP 139/92
[2016-11-19] MEDS: ACCU-CHEK COMFORT CURVE STRIP VI SCH (23:44)
[2016-11-19] MEDS: InsuLIN REG 1unit/0.01ml Soln (100units/ml) SC SCH (23:45)
[2016-11-20] VITALS (8 sets, daily range): BP systolic 120–145; BP diastolic 68–92
[2016-11-20] MEDS: ACCU-CHEK COMFORT CURVE STRIP VI SCH ×4 (05:59→23:35)
[2016-11-20] MEDS: InsuLIN REG 1unit/0.01ml Soln (100units/ml) SC SCH ×2 (05:59→12:00)
[2016-11-20 08:08] LABS: CONDITION Y; DEFINITIVE SEE PRINTOUT; Hematocrit 22.1 % (36.0-46.0); Hemoglobin 7.6 g/dL (12.2-16.2); Mean Corpuscular Hemoglobin 31.9 pg (28.0-32.0); Mean Corpuscular Hgb Conc. 34.4 g/dL (32.0-36.0); Mean Corpuscular Volume 92.8 fL (80.0-100.0); Mean Platelet Volume 9.1 fL (7.4-10.4); Platelet Count (auto) 77 10^3/uL (140-450); White Blood Cell 2.6 10^3/uL (4.4-10.8)
[2016-11-20 08:12] LABS: Red Cell Distribution Width 21.6 % (11.6-16.0)
[2016-11-20 08:13] LABS: Metamyelocytes % 0; Myelocytes % 0; Promyelocytes % 0; Reactive Lymphocytes 0
[2016-11-20 08:58] LABS: Albumin 1.5 g/dL (3.4-5.0); BUN/Creatinine Ratio 11.1; Bilirubin, Total 0.5 mg/dL (0.2-1.0); Calcium 7.7 mg/dL (8.5-10.1); Potassium 3.6 mmol/L (3.5-5.1); Total Protein 13.1 g/dL (6.4-8.2)
[2016-11-20 09:16] LABS: Anisocytosis Moderate; Platelet Estimate Decreased
[2016-11-20] MEDS: HYDROcodone-ACET 5/325MG TAB PO PRN ×2 (09:25→18:35)
[2016-11-20] MEDS ORDERED: PANTOPRAZOLE SODIUM 40 MG/10 ML VIAL IV SCH (10:00)
[2016-11-20] MEDS ORDERED: LISINOPRIL 20 MG TAB PO SCH (10:00)
[2016-11-20] MEDS: SODIUM CHLORIDE 0.9% 1,000 ML IV SCH (13:20)
[2016-11-20] MEDS: BOOST PLUS 8 ounce PO SCH (18:20)
[2016-11-21 05:00] VITALS: BP 138/72
[2016-11-21] MEDS: HYDROcodone-ACET 5/325MG TAB PO PRN (05:04)
[2016-11-21] MEDS: ACCU-CHEK COMFORT CURVE STRIP VI SCH (06:00)
[2016-11-21 06:56] LABS: CONDITION Y; DEFINITIVE SEE PRINTOUT; Hemoglobin 7.5 g/dL (12.2-16.2); Mean Corpuscular Hemoglobin 31.6 pg (28.0-32.0); Mean Corpuscular Hgb Conc. 34.2 g/dL (32.0-36.0); Mean Corpuscular Volume 92.3 fL (80.0-100.0); Mean Platelet Volume 8.7 fL (7.4-10.4); Platelet Count (auto) 74 10^3/uL (140-450); White Blood Cell 2.8 10^3/uL (4.4-10.8)
[2016-11-21 07:14] LABS: Metamyelocytes % 0; Myelocytes % 0; Promyelocytes % 0; Reactive Lymphocytes 0; Red Cell Distribution Width 21.4 % (11.6-16.0)
[2016-11-21] MEDS: BOOST PLUS 8 ounce PO SCH (08:00)
[2016-11-21] MEDS ORDERED: SULF400T11 PO (08:01)
[2016-11-21] MEDS ORDERED: FER325T PO (08:01)
[2016-11-21 08:11] VITALS: BP 135/71
[2016-11-21 08:34] VITALS: BP 135/71
[2016-11-21 12:06] LABS: Platelet Estimate Decreased
[2016-11-21 12:08] LABS: Ovalocytes FEW
[2016-11-21 12:10] LABS: Anisocytosis Moderate
== END 2016-11-21 09:40 | disposition home or self-care (01) | DRG 808 ==
LOC: ER 15:16 → TELE 15:17 → TELE-WESTW 22:55
PROVIDERS: ADMIT Internal Medicine; ATTEND Internal Medicine
PROC: 30233N1 Transfusion of Nonautologous Red Blood Cells into Peripheral Vein, Percutaneous Approach (ICD-10-PCS; principal; 2016-11-20)
DX: D61.818 Other pancytopenia (principal); E43 Unspecified severe protein-calorie malnutrition; C90.00 Multiple myeloma not having achieved remission; N39.0 Urinary tract infection, site not specified; M48.54XA Collapsed vertebra, not elsewhere classified, thoracic region, initial encounter for fracture; J98.11 Atelectasis; E11.9 Type 2 diabetes mellitus without complications; E87.6 Hypokalemia; I11.9 Hypertensive heart disease without heart failure; R91.8 Other nonspecific abnormal finding of lung field; R53.1 Weakness; Z68.25 Body mass index [BMI] 25.0-25.9, adult; Z86.19 Personal history of other infectious and parasitic diseases; Z92.21 Personal history of antineoplastic chemotherapy; Z87.891 Personal history of nicotine dependence; Z85.89 Personal history of malignant neoplasm of other organs and systems
CPT/HCPCS: 36415; 71010; 71250; 80053; 82962; 83735; 84484; 85007; 85027; 85610; 85730; 86850; 86900; 86901; 86920; 87081; 93005; 96361; 96365; 96366; 96375; C9113; J2001; J2405

== ENCOUNTER → 2016-11-25 | Outpatient (CLI) | payer OTHER ==
[~2016-11-25] MED LIST changes: +SULF400T11 PO
[2016-11-25 10:44] LABS: Basophils # (auto) 0 uL; Basophils % (auto) 0.9 % (0.0-2.0); CONDITION Y; DEFINITIVE SEE PRINTOUT; Eosinophils # (auto) 0 uL; Eosinophils % (auto) 0.3 % (0.0-7.0); Hematocrit 22.5 % (36.0-46.0); Hemoglobin 7.7 g/dL (12.2-16.2); Lymphocytes # (auto) 1.2 uL; Lymphocytes % (auto) 38.1 % (10.0-50.0); Mean Corpuscular Hemoglobin 32.1 pg (28.0-32.0); Mean Corpuscular Hgb Conc. 34.2 g/dL (32.0-36.0); Mean Corpuscular Volume 93.8 fL (80.0-100.0); Mean Platelet Volume 9.1 fL (7.4-10.4); Monocytes # (auto) 0.2 uL; Monocytes % (auto) 7.7 % (0.0-12.0); Neutrophils # (auto) 1.6 uL; Platelet Count (auto) 85 10^3/uL (140-450); White Blood Cell 3.1 10^3/uL (4.4-10.8)
[2016-11-25 10:46] LABS: Red Cell Distribution Width 21.1 % (11.6-16.0)
[2016-11-25 11:09] LABS: BUN/Creatinine Ratio 15.4; Calcium 7.7 mg/dL (8.5-10.1); Potassium 3.4 mmol/L (3.5-5.1)
[2016-11-25 12:56] LABS: Anisocytosis Moderate; Ovalocytes FEW; Platelet Estimate Decreased; Polychromasia Slight
== END | disposition home or self-care (01) ==
LOC: LAB 10:24
PROVIDERS: ATTEND Internal Medicine
DX: C90.01 Multiple myeloma in remission (principal)
CPT/HCPCS: 36415; 80048; 83615; 85025

== ENCOUNTER → 2016-12-01 | Outpatient (CLI) | payer OTHER ==
[2016-12-01 10:29] LABS: Basophils # (auto) 0 uL; Basophils % (auto) 0.7 % (0.0-2.0); CONDITION Y; DEFINITIVE SEE PRINTOUT; Eosinophils # (auto) 0 uL; Eosinophils % (auto) 0.7 % (0.0-7.0); Hematocrit 27.6 % (36.0-46.0); Hemoglobin 9.4 g/dL (12.2-16.2); Lymphocytes % (auto) 33.5 % (10.0-50.0); Mean Corpuscular Hemoglobin 32.2 pg (28.0-32.0); Mean Corpuscular Volume 94.7 fL (80.0-100.0); Mean Platelet Volume 9.7 fL (7.4-10.4); Monocytes # (auto) 0.2 uL; Monocytes % (auto) 6.8 % (0.0-12.0); Neutrophils # (auto) 1.8 uL; Neutrophils % (auto) 58.3 % (37.0-80.0); Platelet Count (auto) 145 10^3/uL (140-450); White Blood Cell 3.1 10^3/uL (4.4-10.8)
[2016-12-01 10:50] LABS: BUN/Creatinine Ratio 14.9; Calcium 8.1 mg/dL (8.5-10.1)
[2016-12-01 10:51] LABS: Potassium 4.3 mmol/L (3.5-5.1)
[2016-12-01 10:53] LABS: Platelet Estimate Adequate
[2016-12-01 10:54] LABS: Anisocytosis Moderate
== END | disposition home or self-care (01) ==
LOC: LAB 10:15
PROVIDERS: ATTEND Internal Medicine
DX: C90.00 Multiple myeloma not having achieved remission (principal)
CPT/HCPCS: 36415; 80048; 85025

== ENCOUNTER → 2016-12-03 | Outpatient (CLI) | payer OTHER ==
[2016-12-03 10:45] LABS: Basophils # (auto) 0 uL; Basophils % (auto) 0.4 % (0.0-2.0); CONDITION Y; DEFINITIVE SEE PRINTOUT; Eosinophils # (auto) 0 uL; Eosinophils % (auto) 0.7 % (0.0-7.0); Hematocrit 24.7 % (36.0-46.0); Hemoglobin 8.3 g/dL (12.2-16.2); Lymphocytes # (auto) 1.4 uL; Lymphocytes % (auto) 49.5 % (10.0-50.0); Mean Corpuscular Hemoglobin 32.3 pg (28.0-32.0); Mean Corpuscular Hgb Conc. 33.6 g/dL (32.0-36.0); Mean Corpuscular Volume 96.3 fL (80.0-100.0); Mean Platelet Volume 9.4 fL (7.4-10.4); Monocytes # (auto) 0.2 uL; Monocytes % (auto) 5.6 % (0.0-12.0); Neutrophils # (auto) 1.2 uL; Neutrophils % (auto) 43.8 % (37.0-80.0); Platelet Count (auto) 152 10^3/uL (140-450); White Blood Cell 2.8 10^3/uL (4.4-10.8)
[2016-12-03 10:54] LABS: Red Cell Distribution Width 22.5 % (11.6-16.0)
[2016-12-03 11:01] LABS: BUN/Creatinine Ratio 28.9; Potassium 3.4 mmol/L (3.5-5.1)
[2016-12-03 14:17] LABS: Platelet Estimate Adequate
[2016-12-03 14:20] LABS: Anisocytosis Moderate
== END | disposition home or self-care (01) ==
LOC: LAB 10:09
PROVIDERS: ATTEND Internal Medicine
DX: C90.00 Multiple myeloma not having achieved remission (principal)
CPT/HCPCS: 36415; 80048; 85025

== ENCOUNTER → 2016-12-22 | Outpatient (CLI) | payer OTHER ==
[2016-12-22 09:32] LABS: CONDITION Y; DEFINITIVE SEE PRINTOUT; Hematocrit 28.6 % (36.0-46.0); Hemoglobin 9.4 g/dL (12.2-16.2); Mean Corpuscular Hemoglobin 32.9 pg (28.0-32.0); Mean Corpuscular Volume 99.6 fL (80.0-100.0); Mean Platelet Volume 8.2 fL (7.4-10.4); Platelet Count (auto) 186 10^3/uL (140-450); White Blood Cell 2.7 10^3/uL (4.4-10.8)
[2016-12-22 09:37] LABS: Red Cell Distribution Width 23.3 % (11.6-16.0)
[2016-12-22 09:38] LABS: Metamyelocytes % 0; Myelocytes % 0; Promyelocytes % 0
[2016-12-22 10:09] LABS: Reactive Lymphocytes 1
[2016-12-22 10:10] LABS: Anisocytosis Slight; Platelet Estimate Adequate
[2016-12-22 10:15] LABS: Albumin 2.3 g/dL (3.4-5.0); BUN/Creatinine Ratio 13.3; Bilirubin, Total 0.3 mg/dL (0.2-1.0); Calcium 8.5 mg/dL (8.5-10.1); Potassium 3.7 mmol/L (3.5-5.1); Total Protein 11.5 g/dL (6.4-8.2)
== END | disposition home or self-care (01) ==
LOC: LAB 08:56
PROVIDERS: ATTEND Internal Medicine
DX: D64.9 Anemia, unspecified (principal)
CPT/HCPCS: 36415; 80053; 85007; 85027

== ENCOUNTER → 2016-12-29 | Outpatient (CLI) | payer OTHER ==
[2016-12-29 11:13] LABS: Basophils # (auto) 0 uL; Basophils % (auto) 0.5 % (0.0-2.0); CONDITION Y; DEFINITIVE SEE PRINTOUT; Eosinophils # (auto) 0 uL; Eosinophils % (auto) 1.4 % (0.0-7.0); Hemoglobin 9.4 g/dL (12.2-16.2); Lymphocytes % (auto) 41.3 % (10.0-50.0); Mean Corpuscular Hgb Conc. 32.6 g/dL (32.0-36.0); Mean Corpuscular Volume 101.1 fL (80.0-100.0); Monocytes # (auto) 0.3 uL; Monocytes % (auto) 13.2 % (0.0-12.0); Neutrophils # (auto) 1.1 uL; Neutrophils % (auto) 43.6 % (37.0-80.0); Platelet Count (auto) 183 10^3/uL (140-450); Red Cell Distribution Width 22.4 % (11.6-16.0); White Blood Cell 2.4 10^3/uL (4.4-10.8)
[2016-12-29 14:46] LABS: Anisocytosis Slight; Macrocytosis Slight; Platelet Estimate Adequate
== END | disposition home or self-care (01) ==
LOC: LAB 10:56
PROVIDERS: ATTEND Internal Medicine
DX: C90.00 Multiple myeloma not having achieved remission (principal)
CPT/HCPCS: 36415; 85025

== ENCOUNTER → 2017-01-02 | Outpatient (CLI) | payer OTHER | END | disposition home or self-care (01) | LOC: LAB 14:58 | PROVIDERS: ATTEND Internal Medicine | DX: D64.9 Anemia, unspecified (principal) | CPT/HCPCS: 82270 ==

== ENCOUNTER → 2017-01-05 | Outpatient (CLI) | payer OTHER ==
[2017-01-05 11:06] LABS: Basophils # (auto) 0 uL; Basophils % (auto) 0.2 % (0.0-2.0); CONDITION Y; DEFINITIVE SEE PRINTOUT; Eosinophils # (auto) 0 uL; Eosinophils % (auto) 1.5 % (0.0-7.0); Hematocrit 28.7 % (36.0-46.0); Hemoglobin 9.6 g/dL (12.2-16.2); Lymphocytes # (auto) 0.7 uL; Lymphocytes % (auto) 25.5 % (10.0-50.0); Mean Corpuscular Hemoglobin 33.2 pg (28.0-32.0); Mean Corpuscular Hgb Conc. 33.3 g/dL (32.0-36.0); Mean Corpuscular Volume 99.7 fL (80.0-100.0); Mean Platelet Volume 9.6 fL (7.4-10.4); Monocytes # (auto) 0.1 uL; Monocytes % (auto) 5.2 % (0.0-12.0); Neutrophils # (auto) 1.9 uL; Neutrophils % (auto) 67.6 % (37.0-80.0); Platelet Count (auto) 165 10^3/uL (140-450); White Blood Cell 2.8 10^3/uL (4.4-10.8)
[2017-01-05 11:08] LABS: Red Cell Distribution Width 20.8 % (11.6-16.0)
[2017-01-05 11:27] LABS: BUN/Creatinine Ratio 15.6; Calcium 8.7 mg/dL (8.5-10.1)
== END | disposition home or self-care (01) ==
LOC: LAB 09:26
PROVIDERS: ATTEND Internal Medicine
DX: C90.00 Multiple myeloma not having achieved remission (principal)
CPT/HCPCS: 36415; 80048; 85025

== ENCOUNTER → 2017-01-19 | Outpatient (CLI) | payer OTHER ==
[2017-01-19 11:01] LABS: Basophils # (auto) 0 uL; Basophils % (auto) 0.7 % (0.0-2.0); CONDITION Y; DEFINITIVE SEE PRINTOUT; Eosinophils # (auto) 0 uL; Eosinophils % (auto) 1.8 % (0.0-7.0); Hematocrit 29.7 % (36.0-46.0); Hemoglobin 9.7 g/dL (12.2-16.2); Lymphocytes # (auto) 0.9 uL; Lymphocytes % (auto) 42.9 % (10.0-50.0); Mean Corpuscular Hemoglobin 32.3 pg (28.0-32.0); Mean Corpuscular Hgb Conc. 32.7 g/dL (32.0-36.0); Mean Corpuscular Volume 98.6 fL (80.0-100.0); Mean Platelet Volume 9.3 fL (7.4-10.4); Monocytes # (auto) 0.2 uL; Monocytes % (auto) 11.4 % (0.0-12.0); Neutrophils # (auto) 0.9 uL; Neutrophils % (auto) 43.2 % (37.0-80.0); Platelet Count (auto) 185 10^3/uL (140-450); Red Cell Distribution Width 18.9 % (11.6-16.0); White Blood Cell 2.1 10^3/uL (4.4-10.8)
[2017-01-19 11:26] LABS: Albumin 2.6 g/dL (3.4-5.0); BUN/Creatinine Ratio 18.3; Bilirubin, Total 0.3 mg/dL (0.2-1.0); Calcium 8.4 mg/dL (8.5-10.1); Potassium 3.3 mmol/L (3.5-5.1); Total Protein 9.3 g/dL (6.4-8.2)
[2017-01-20 09:09] LABS: Kappa Lite Chain Free Serum 15.7 mg/L (3.3-19.4); Lambda Lite Chains Free Serum 6.7 mg/L (5.7-26.3)
== END | disposition home or self-care (01) ==
LOC: LAB 09:29
PROVIDERS: ATTEND Internal Medicine
DX: C90.00 Multiple myeloma not having achieved remission (principal); N39.0 Urinary tract infection, site not specified; I10 Essential (primary) hypertension
CPT/HCPCS: 36415; 80053; 82784; 83615; 83883; 84156; 85025; 85652

== ENCOUNTER → 2017-02-04 | Outpatient (CLI) | payer OTHER ==
[2017-02-04 10:10] LABS: Basophils # (auto) 0 uL; Basophils % (auto) 0.4 % (0.0-2.0); CONDITION Y; Eosinophils # (auto) 0 uL; Eosinophils % (auto) 1.7 % (0.0-7.0); Hematocrit 33.9 % (36.0-46.0); Hemoglobin 11.1 g/dL (12.2-16.2); Lymphocytes % (auto) 38.8 % (10.0-50.0); Mean Corpuscular Hemoglobin 31.4 pg (28.0-32.0); Mean Corpuscular Hgb Conc. 32.9 g/dL (32.0-36.0); Mean Corpuscular Volume 95.5 fL (80.0-100.0); Mean Platelet Volume 10.1 fL (7.4-10.4); Monocytes # (auto) 0.3 uL; Monocytes % (auto) 10.5 % (0.0-12.0); Neutrophils # (auto) 1.3 uL; Neutrophils % (auto) 48.6 % (37.0-80.0); Platelet Count (auto) 219 10^3/uL (140-450); White Blood Cell 2.6 10^3/uL (4.4-10.8)
[2017-02-04 10:29] LABS: Albumin 2.9 g/dL (3.4-5.0); BUN/Creatinine Ratio 19.5; Bilirubin, Total 0.3 mg/dL (0.2-1.0); Potassium 3.6 mmol/L (3.5-5.1); Total Protein 10.1 g/dL (6.4-8.2)
== END | disposition home or self-care (01) ==
LOC: LAB 09:55
PROVIDERS: ATTEND Internal Medicine
DX: C90.00 Multiple myeloma not having achieved remission (principal); D64.9 Anemia, unspecified
CPT/HCPCS: 36415; 80053; 85025

== ENCOUNTER → 2017-02-17 | Outpatient (CLI) | payer OTHER ==
[2017-02-17 10:11] LABS: Basophils # (auto) 0 uL; Basophils % (auto) 0.4 % (0.0-2.0); Eosinophils # (auto) 0 uL; Eosinophils % (auto) 1.4 % (0.0-7.0); Hematocrit 30.3 % (36.0-46.0); Hemoglobin 9.8 g/dL (12.2-16.2); Lymphocytes # (auto) 0.7 uL; Lymphocytes % (auto) 33.1 % (10.0-50.0); Mean Corpuscular Hemoglobin 31.1 pg (28.0-32.0); Mean Corpuscular Hgb Conc. 32.5 g/dL (32.0-36.0); Mean Corpuscular Volume 95.7 fL (80.0-100.0); Mean Platelet Volume 8.8 fL (6.9-10.8); Monocytes # (auto) 0.3 uL; Neutrophils # (auto) 1.1 uL; Neutrophils % (auto) 50.1 % (37.0-80.0); Nucleated Red Blood Cells % 0.2 %; Platelet Count (auto) 135 10^3/uL (140-450); Red Cell Distribution Width 16.8 % (11.8-14.3); White Blood Cell 2.2 10^3/uL (4.4-10.8)
[2017-02-17 10:54] LABS: Albumin 2.7 g/dL (3.4-5.0); BUN/Creatinine Ratio 19.9; Bilirubin, Total 0.2 mg/dL (0.2-1.0); Calcium 8.7 mg/dL (8.5-10.1); Potassium 3.8 mmol/L (3.5-5.1); Total Protein 9.6 g/dL (6.4-8.2)
[2017-02-17 11:52] LABS: Platelet Estimate Decreased
[2017-02-17 11:53] LABS: Anisocytosis Slight
== END | disposition home or self-care (01) ==
LOC: LAB 10:01
PROVIDERS: ATTEND Internal Medicine
DX: Z12.11 Encounter for screening for malignant neoplasm of colon (principal); C90.00 Multiple myeloma not having achieved remission
CPT/HCPCS: 36415; 80053; 85025

== ENCOUNTER → 2017-02-18 | Outpatient (CLI) | payer OTHER | END | disposition home or self-care (01) | LOC: LAB 09:27 | PROVIDERS: ATTEND Internal Medicine | DX: C90.01 Multiple myeloma in remission (principal) | CPT/HCPCS: 36415; 82565; 84520 ==

== ENCOUNTER → 2017-02-24 | Outpatient (CLI) | payer OTHER ==
[2017-02-24 10:13] LABS: Hematocrit 30.5 % (36.0-46.0); Hemoglobin 9.8 g/dL (12.2-16.2); Mean Corpuscular Hemoglobin 30.6 pg (28.0-32.0); Mean Corpuscular Hgb Conc. 32.3 g/dL (32.0-36.0); Mean Corpuscular Volume 94.7 fL (80.0-100.0); Mean Platelet Volume 9.8 fL (6.9-10.8); Platelet Count (auto) 199 10^3/uL (140-450); Red Cell Distribution Width 17.1 % (11.8-14.3); White Blood Cell 2.8 10^3/uL (4.4-10.8)
[2017-02-24 10:24] LABS: Metamyelocytes % 0; Myelocytes % 0; Promyelocytes % 0; Reactive Lymphocytes 0
[2017-02-24 10:42] LABS: Albumin 2.5 g/dL (3.4-5.0); BUN/Creatinine Ratio 23.3; Bilirubin, Total 0.3 mg/dL (0.2-1.0); Calcium 8.9 mg/dL (8.5-10.1); Potassium 3.4 mmol/L (3.5-5.1); Total Protein 9.6 g/dL (6.4-8.2)
[2017-02-24 10:59] LABS: Anisocytosis Slight; Platelet Estimate Adequate
== END | disposition home or self-care (01) ==
LOC: LAB 09:44
PROVIDERS: ATTEND Internal Medicine
DX: C90.01 Multiple myeloma in remission (principal)
CPT/HCPCS: 36415; 80053; 83615; 85007; 85027

== ENCOUNTER → 2017-03-03 | Outpatient (CLI) | payer OTHER ==
[2017-03-03 10:36] LABS: Basophils # (auto) 0 uL; Basophils % (auto) 0.4 % (0.0-2.0); Eosinophils # (auto) 0 uL; Eosinophils % (auto) 0.8 % (0.0-7.0); Hematocrit 29.3 % (36.0-46.0); Hemoglobin 9.5 g/dL (12.2-16.2); Lymphocytes # (auto) 0.6 uL; Lymphocytes % (auto) 19.1 % (10.0-50.0); Mean Corpuscular Hemoglobin 30.3 pg (28.0-32.0); Mean Corpuscular Hgb Conc. 32.5 g/dL (32.0-36.0); Mean Corpuscular Volume 93.4 fL (80.0-100.0); Mean Platelet Volume 9.6 fL (6.9-10.8); Monocytes # (auto) 0.3 uL; Monocytes % (auto) 7.9 % (0.0-12.0); Neutrophils # (auto) 2.3 uL; Neutrophils % (auto) 71.8 % (37.0-80.0); Nucleated Red Blood Cells % 0.1 %; Platelet Count (auto) 167 10^3/uL (140-450); Red Cell Distribution Width 17.7 % (11.8-14.3); White Blood Cell 3.2 10^3/uL (4.4-10.8)
[2017-03-03 10:50] LABS: Albumin 2.4 g/dL (3.4-5.0); BUN/Creatinine Ratio 18.3; Bilirubin, Total 0.4 mg/dL (0.2-1.0); Calcium 7.8 mg/dL (8.5-10.1); Total Protein 9.5 g/dL (6.4-8.2)
[2017-03-03 10:55] LABS: Potassium 2.9 mmol/L (3.5-5.1)
[2017-03-04 12:08] LABS: Kappa Lite Chain Free Serum 66.7 mg/L (3.3-19.4); Lambda Lite Chains Free Serum 8.3 mg/L (5.7-26.3)
== END | disposition home or self-care (01) ==
LOC: LAB 10:10
PROVIDERS: ATTEND Internal Medicine
DX: Z01.810 Encounter for preprocedural cardiovascular examination (principal); C90.01 Multiple myeloma in remission
CPT/HCPCS: 36415; 80053; 82784; 83615; 83883; 85025

== ENCOUNTER → 2017-03-16 | Outpatient (CLI) | payer OTHER ==
[2017-03-16 12:10] LABS: Hematocrit 26.6 % (36.0-46.0); Hemoglobin 8.7 g/dL (12.2-16.2); Mean Corpuscular Hgb Conc. 32.7 g/dL (32.0-36.0); Mean Corpuscular Volume 91.7 fL (80.0-100.0); Platelet Count (auto) 189 10^3/uL (140-450); Red Cell Distribution Width 18.1 % (11.8-14.3); White Blood Cell 2.8 10^3/uL (4.4-10.8)
[2017-03-16 13:15] LABS: Metamyelocytes % 0; Myelocytes % 0; Promyelocytes % 0; Reactive Lymphocytes 0
[2017-03-16 13:17] LABS: BUN/Creatinine Ratio 25.2
[2017-03-16 13:18] LABS: Bilirubin, Total 0.2 mg/dL (0.2-1.0); Calcium 7.6 mg/dL (8.5-10.1)
[2017-03-16 15:00] LABS: Platelet Clumps MODERATE; Platelet Estimate Adequate
== END | disposition home or self-care (01) ==
LOC: LAB 09:26
PROVIDERS: ATTEND Internal Medicine
DX: C90.01 Multiple myeloma in remission (principal)
CPT/HCPCS: 36415; 80053; 83615; 85007; 85027

== ENCOUNTER → 2017-03-24 | Outpatient (CLI) | payer OTHER ==
[2017-03-24 10:43] LABS: Hemoglobin 8.3 g/dL (12.2-16.2); White Blood Cell 3.2 10^3/uL (4.4-10.8)
[2017-03-24 10:45] LABS: Hematocrit 25.5 % (36.0-46.0); Mean Corpuscular Hgb Conc. 32.5 g/dL (32.0-36.0); Mean Corpuscular Volume 92.4 fL (80.0-100.0); Mean Platelet Volume 8.5 fL (6.9-10.8); Platelet Count (auto) 170 10^3/uL (140-450); Red Cell Distribution Width 18.7 % (11.8-14.3)
[2017-03-24 10:46] LABS: Metamyelocytes % 0; Myelocytes % 0; Promyelocytes % 0; Reactive Lymphocytes 0
[2017-03-24 11:36] LABS: Anisocytosis Slight; Ovalocytes FEW; Platelet Estimate Adequate
== END | disposition home or self-care (01) ==
LOC: LAB 10:16
PROVIDERS: ATTEND Internal Medicine
DX: C90.01 Multiple myeloma in remission (principal)
CPT/HCPCS: 36415; 85007; 85027

== ENCOUNTER → 2017-03-30 | Outpatient (CLI) | payer OTHER ==
[2017-03-31 11:01] LABS: Basophils # (auto) 0 uL; Basophils % (auto) 0.2 % (0.0-2.0); Eosinophils # (auto) 0 uL; Eosinophils % (auto) 0.3 % (0.0-7.0); Hematocrit 31.8 % (36.0-46.0); Hemoglobin 9.1 g/dL (12.2-16.2); Lymphocytes # (auto) 0.7 uL; Mean Corpuscular Hemoglobin 29.9 pg (28.0-32.0); Mean Corpuscular Hgb Conc. 28.6 g/dL (32.0-36.0); Mean Corpuscular Volume 104.4 fL (80.0-100.0); Mean Platelet Volume 9.8 fL (6.9-10.8); Monocytes # (auto) 0.5 uL; Monocytes % (auto) 10.4 % (0.0-12.0); Neutrophils # (auto) 3.5 uL; Neutrophils % (auto) 74.1 % (37.0-80.0); Nucleated Red Blood Cells % 0.5 %; Platelet Count (auto) 166 10^3/uL (140-450); White Blood Cell 4.7 10^3/uL (4.4-10.8)
[2017-03-31 11:07] LABS: Kappa Lite Chain Free Serum 112.5 mg/L (3.3-19.4)
[2017-03-31 11:08] LABS: Red Cell Distribution Width 21.2 % (11.8-14.3)
[2017-03-31 11:20] LABS: Albumin 1.9 g/dL (3.4-5.0); BUN/Creatinine Ratio 29.5; Bilirubin, Total 0.3 mg/dL (0.2-1.0); Calcium 8.2 mg/dL (8.5-10.1); Potassium 3.5 mmol/L (3.5-5.1); Total Protein 9.8 g/dL (6.4-8.2)
[2017-03-31 11:28] LABS: Anisocytosis Moderate; Ovalocytes FEW; Platelet Estimate Adequate
[2017-03-31 11:29] LABS: Macrocytosis Slight
== END | disposition home or self-care (01) ==
LOC: LAB 11:57
PROVIDERS: ATTEND Internal Medicine
DX: C90.01 Multiple myeloma in remission (principal); I10 Essential (primary) hypertension
CPT/HCPCS: 36415; 80053; 82784; 83615; 83883; 85025; 86334

== ENCOUNTER → 2017-04-14 | Outpatient (CLI) | payer OTHER ==
[2017-04-14 16:01] LABS: Albumin 2.2 g/dL (3.4-5.0); BUN/Creatinine Ratio 27.7; Bilirubin, Total 0.3 mg/dL (0.2-1.0); Calcium 8.3 mg/dL (8.5-10.1); Potassium 3.2 mmol/L (3.5-5.1); Total Protein 9.5 g/dL (6.4-8.2)
[2017-04-14 16:08] LABS: Basophils # (auto) 0 uL; Basophils % (auto) 0.5 % (0.0-2.0); Eosinophils # (auto) 0.1 uL; Eosinophils % (auto) 5.3 % (0.0-7.0); Hematocrit 23.6 % (36.0-46.0); Hemoglobin 7.7 g/dL (12.2-16.2); Lymphocytes # (auto) 0.3 uL; Lymphocytes % (auto) 14.4 % (10.0-50.0); Mean Corpuscular Hemoglobin 30.1 pg (28.0-32.0); Mean Corpuscular Hgb Conc. 32.7 g/dL (32.0-36.0); Mean Corpuscular Volume 91.8 fL (80.0-100.0); Monocytes # (auto) 0.3 uL; Monocytes % (auto) 16.1 % (0.0-12.0); Neutrophils # (auto) 1.2 uL; Neutrophils % (auto) 63.7 % (37.0-80.0); Nucleated Red Blood Cells % 0.3 %; Platelet Count (auto) 182 10^3/uL (140-450)
[2017-04-14 16:14] LABS: White Blood Cell 1.9 10^3/uL (4.4-10.8)
[2017-04-14 17:21] LABS: Anisocytosis Slight; Ovalocytes FEW; Platelet Estimate Adequate
== END | disposition home or self-care (01) ==
LOC: LAB 15:21
PROVIDERS: ATTEND Internal Medicine
DX: C90.01 Multiple myeloma in remission (principal); I10 Essential (primary) hypertension
CPT/HCPCS: 36415; 80053; 83615; 85025

== ENCOUNTER → 2017-04-15 | Outpatient (CLI) | payer OTHER | END | disposition home or self-care (01) | LOC: LAB 11:04 | PROVIDERS: ATTEND Internal Medicine | DX: C90.00 Multiple myeloma not having achieved remission (principal) | CPT/HCPCS: 86850; 86900; 86901; 86920 ==

== ENCOUNTER → 2017-04-20 | Outpatient (CLI) | payer OTHER ==
[2017-04-20 11:12] LABS: Basophils # (auto) 0 uL; Basophils % (auto) 0.4 % (0.0-2.0); Eosinophils # (auto) 0.1 uL; Hematocrit 30.2 % (36.0-46.0); Hemoglobin 10.1 g/dL (12.2-16.2); Lymphocytes # (auto) 0.2 uL; Lymphocytes % (auto) 7.7 % (10.0-50.0); Mean Corpuscular Hemoglobin 30.5 pg (28.0-32.0); Mean Corpuscular Hgb Conc. 33.4 g/dL (32.0-36.0); Mean Corpuscular Volume 91.4 fL (80.0-100.0); Mean Platelet Volume 8.3 fL (6.9-10.8); Monocytes # (auto) 0.4 uL; Neutrophils # (auto) 2.2 uL; Neutrophils % (auto) 75.9 % (37.0-80.0); Nucleated Red Blood Cells % 0.5 %; Platelet Count (auto) 178 10^3/uL (140-450); Red Cell Distribution Width 18.1 % (11.8-14.3); White Blood Cell 2.9 10^3/uL (4.4-10.8)
[2017-04-20 11:20] LABS: Albumin 2.2 g/dL (3.4-5.0); BUN/Creatinine Ratio 23.8; Bilirubin, Total 0.4 mg/dL (0.2-1.0); Calcium 8.2 mg/dL (8.5-10.1); Total Protein 9.8 g/dL (6.4-8.2)
[2017-04-20 11:23] LABS: Potassium 2.8 mmol/L (3.5-5.1)
== END | disposition home or self-care (01) ==
LOC: LAB 10:28
PROVIDERS: ATTEND Internal Medicine
DX: C90.00 Multiple myeloma not having achieved remission (principal)
CPT/HCPCS: 36415; 80053; 83615; 85025